=== PATIENT | female | born 1950 | race Caucasian/White ===

== ENCOUNTER → 2023-06-29 09:02 | Outpatient (REF) | payer MEDICARE, OTHER, SELFPAY | LOC: HWRAD 09:02 | PROVIDERS: ATTENDING PHYSICIAN Student in an Organized Health Care Education/Training Program | DX: Z12.31 Encounter for screening mammogram for malignant neoplasm of breast (principal); Z78.0 Asymptomatic menopausal state | CPT/HCPCS: 77063; 77067; 77080 ==

== ENCOUNTER → 2023-07-27 13:57 | Outpatient (REF) | payer MEDICARE, OTHER, SELFPAY | LOC: RCS 13:57 | PROVIDERS: ATTENDING PHYSICIAN Student in an Organized Health Care Education/Training Program | DX: R93.1 Abnormal findings on diagnostic imaging of heart and coronary circulation (principal) | CPT/HCPCS: 93017; 93350 ==

== ENCOUNTER → 2023-12-13 12:41 | Outpatient (REF) | payer MEDICARE, OTHER, SELFPAY | LOC: HWRAD 12:41 | PROVIDERS: ATTENDING PHYSICIAN Obstetrics & Gynecology Gynecology; FAMILY PHYSICIAN Student in an Organized Health Care Education/Training Program | DX: N95.0 Postmenopausal bleeding (principal) | CPT/HCPCS: 76830; 76856 ==

== ENCOUNTER 2024-02-22 06:29 | Day surgery (SDC) | payer MEDICARE, OTHER, SELFPAY ==
[2024-02-14 11:28] LABS: Hematocrit 43.4 % (37.0-47.0); Hemoglobin 14.8 g/dL (12.0-16.0); Mean Corp Hgb Conc. 34.1 g/dL (33.0-37.0); Mean Corpuscular Hgb 31.7 pg (27.0-31.0); Mean Corpuscular Volume 92.9 fL (81.0-99.0); Mean Platelet Volume 9.4 fL (7.4-10.4); Platelet Count 228 10^3/uL (130-400); Red Blood Cell Count 4.67 10^6/uL (4.20-5.40); Red Cell Dist. Width 13.8 % (11.5-14.5); White Blood Cell Count 9.8 10^3/uL (4.8-10.8)
[2024-02-22] VITALS (18 sets, daily range): BP systolic 103–150; BP diastolic 65–87; BMI 28.2
[2024-02-22] MEDS: NORMOSOL-R/PLASMALYTE-A 1000 IV ×2 (10:31→20:08)
[2024-02-22] MEDS: Pyridium 200 MG PO (10:38)
[2024-02-22] MEDS: HEPARIN 5000 UNITS SC (10:49)
[2024-02-22] MEDS: ZOFRAN 4 MG IV (14:43)
[2024-02-22] MEDS: COMPAZINE 5 MG IV (15:24)
[2024-02-22] MEDS: TYLENOL 650 MG PO (19:07)
[2024-02-22] MEDS: TORADOL 15 MG IV (20:19)
[2024-02-22] MEDS: COLACE 100 MG PO (20:19)
[2024-02-22] MEDS: MYLICON 80 MG PO (20:50)
[2024-02-22] MEDS: REFRESH EYE DROPS (PF) 1 DROPS OPHTH (23:10)
--- NOTE | 2024-02-22 23:51 | PTCARENOTE ---
19:55 pt rec'd from [facility], [id number] able to make needs known, lepe cath in place draining yellow/orange urine, IVF hung as per order. oriented to unit, is staying overnight.
[2024-02-23] MEDS: TORADOL 15 MG IV ×2 (01:51→08:37)
[2024-02-23] MEDS: NORMOSOL-R/PLASMALYTE-A 1000 IV (03:09)
[2024-02-23] MEDS: SYNTHROID 200 MCG PO (05:41)
[2024-02-23 06:04] LABS: Hematocrit 37.2 % (37.0-47.0); Hemoglobin 12.6 g/dL (12.0-16.0); Mean Corp Hgb Conc. 33.9 g/dL (33.0-37.0); Mean Corpuscular Hgb 30.8 pg (27.0-31.0); Mean Platelet Volume 10.1 fL (7.4-10.4); Platelet Count 339 10^3/uL (130-400); Red Blood Cell Count 4.09 10^6/uL (4.20-5.40); Red Cell Dist. Width 13.2 % (11.5-14.5); White Blood Cell Count 11.3 10^3/uL (4.8-10.8)
[2024-02-23 06:20] LABS: Blood Urea Nitrogen 11 mg/dl (7-17); Carbon Dioxide 29 mmol/L (22-30); Chloride 103 mmol/L (98-107); Estimated Creatinine Clearance 89 ml/min; Potassium 4.4 mmol/L (3.5-5.1); Sodium 140 mmol/L (135-145)
--- NOTE | 2024-02-23 06:29 | PTCARENOTE ---
05:00 pt indwelling lepe pulled as per orders, tolerated well. scant staining bleeding noted on radha pad, pt tolerated Toradol well with no other pain med required.
[2024-02-23 07:15] VITALS: BP 135/69
[2024-02-23] MEDS: MYLICON 80 MG PO (07:34)
[2024-02-23] MEDS: COLACE 100 MG PO (08:37)
--- NOTE | 2024-02-23 08:38 | W.PN.GYN ---
Today's Communication / Plan
-
d/c home
Physician Note
-
Assessment and Plan:
73 yo woman POD 1 s/p robotic supracervical hysterectomy, LSO, sacrocolpopexy, posterior repair, retropubic sling and cystoscopy: patient admitted for postop nausea and dizziness which resolved overnight, normal VS and normal bloodwork this morning.
Plan to d/c home today.
1. Postoperative care
-hep lock iv
-regular diet
-dvt ppx: lovenox, scds, ambulation
-cbc: WNL
-bmp:WNL
-uop: adequate
-voiding trial: passed, voided 550cc this morning
2. Dispo
-d/c home today
Subjective:
pain resolved. nausea resolved. tolerating regular diet. lepe removed. minimal vaginal bleeding
Objective:
Intake and Output
02/21/24 02/22/24 02/23/24 02/24/24
06:59 06:59 06:59 06:59
Intake Total 2124 / 2124
Output Total 1500 / 1500
Balance 625 / 625
Intake:
Oral fluids 200 / 200
IV fluids (Total) 1924 / 1924
Normosol 550 / 550
Output:
Urine, Lepe 1500 / 1500
Vital Signs
Temp Pulse Resp BP Pulse Ox
97.5 F 61 18 135/69 99
02/23/24 07:15 02/23/24 07:15 02/23/24 07:15 02/23/24 07:15 02/23/24 07:15
Lab Results
02/23/24 04:51
02/23/24 04:51
Exam:
Abdomen: soft, nontender, nondistended
Incisions: clean, dry, intact
: minimal spotting
--- NOTE | 2024-02-23 10:15 | CM ---
Met with pt and at bedside
Pt reports she lives with her in a 2 story home; 5 steps to enter, 14 steps to 2nd fl
Independent, active and driving at baseline
DME - none
SNF/HH - denies past hx
Has ride home at discharge
PCP - Dr Maria
Pharm - [facility]
Plan - anticipate home no needs
[2024-02-23] MEDS: TYLENOL 650 MG PO (10:41)
[2024-02-23 11:10] VITALS: BP 116/65
== END 2024-02-23 13:53 | disposition home or self-care (01) ==
LOC: SDS 06:29
PROVIDERS: ATTENDING PHYSICIAN Obstetrics & Gynecology; FAMILY PHYSICIAN Student in an Organized Health Care Education/Training Program
DX: N81.3 Complete uterovaginal prolapse (principal); N95.8 Other specified menopausal and perimenopausal disorders; N39.3 Stress incontinence (female) (male)
CPT/HCPCS: 57425; 58542; 57250; 57288; 88305; 36415; 80051; 82565; 84520; 85027; 86850; 86900; 86901; C1763; C1771

== ENCOUNTER → 2024-08-15 07:06 | Outpatient (REF) | payer MEDICARE, OTHER, SELFPAY | LOC: HWWDC 07:06 | PROVIDERS: ATTENDING PHYSICIAN Obstetrics & Gynecology Gynecology; FAMILY PHYSICIAN Student in an Organized Health Care Education/Training Program | DX: Z12.31 Encounter for screening mammogram for malignant neoplasm of breast (principal) | CPT/HCPCS: 77063; 77067 ==

== ENCOUNTER → 2024-10-18 17:29 | Outpatient (REF) | payer MEDICARE, OTHER, SELFPAY | LOC: RAD 17:29 | PROVIDERS: ATTENDING PHYSICIAN Student in an Organized Health Care Education/Training Program | DX: M79.605 Pain in left leg (principal) | CPT/HCPCS: 72110; 73523 ==

== ENCOUNTER → 2025-02-09 18:21 | Outpatient (REF) | payer MEDICARE, OTHER, SELFPAY | LOC: MRI 18:21 | PROVIDERS: ATTENDING PHYSICIAN Student in an Organized Health Care Education/Training Program | DX: R29.898 Other symptoms and signs involving the musculoskeletal system (principal); M54.50 Low back pain, unspecified; M54.30 Sciatica, unspecified side | CPT/HCPCS: 72148 ==

== ENCOUNTER 2025-02-19 07:31 | Outpatient (RCR) | payer MEDICARE, OTHER, SELFPAY ==
[2025-02-19 08:09] VITALS: BP 131/73
[2025-02-19] MEDS: LEQVIO 284 MG SC (08:26)
== END 2025-02-19 10:06 | disposition home or self-care (01) ==
LOC: OID 07:31
PROVIDERS: ATTENDING PHYSICIAN Internal Medicine Cardiovascular Disease; FAMILY PHYSICIAN Student in an Organized Health Care Education/Training Program
DX: E78.2 Mixed hyperlipidemia (principal)
CPT/HCPCS: 96372; J1306

== ENCOUNTER → 2025-04-27 12:17 | Outpatient (REF) | payer MEDICARE, OTHER, SELFPAY | LOC: REG 12:17 | PROVIDERS: ATTENDING PHYSICIAN Student in an Organized Health Care Education/Training Program | DX: M25.551 Pain in right hip (principal); M25.552 Pain in left hip; M25.561 Pain in right knee | CPT/HCPCS: 73523; 73564 ==

== ENCOUNTER 2025-05-21 08:36 | Outpatient (RCR) | payer MEDICARE, OTHER, SELFPAY ==
[2025-05-21 08:45] VITALS: BP 172/83
[2025-05-21] MEDS: LEQVIO 284 MG SC (08:59)
== END 2025-05-23 23:59 | disposition home or self-care (01) ==
LOC: OID 08:36
PROVIDERS: ATTENDING PHYSICIAN Internal Medicine Cardiovascular Disease; FAMILY PHYSICIAN Student in an Organized Health Care Education/Training Program
DX: E78.2 Mixed hyperlipidemia (principal); E78.70 Disorder of bile acid and cholesterol metabolism, unspecified
CPT/HCPCS: 96372; J1306